=== PATIENT | female | born 1995 | race African-American/Black ===

== ENCOUNTER 2017-04-12 17:38 | Emergency (ER) | payer OTHER ==
[~2017-04-12] VITALS: Ht 162.6 cm; Wt 74.8 kg
[2017-04-12 18:38] LABS: CONTROL LINE UCG INT CTR LINE PRESENT
[2017-04-12 19:14] VITALS: BP 120/70
== END 2017-04-12 19:16 | disposition home or self-care (01) ==
LOC: M ED 18:44
DX: Z32.01 Encounter for pregnancy test, result positive (principal); O26.891 Other specified pregnancy related conditions, first trimester

== ENCOUNTER → 2017-04-24 | Outpatient (REF) | payer OTHER ==
[2017-04-24 13:46] LABS: MEAN CORPUSCULAR HEMOGLOBIN 30.2 pg (27.0-33.0); MEAN CORPUSCULAR HGB CONC 32.6 g/dl (32.0-36.5); MEAN CORPUSCULAR VOLUME 92.5 fl (80.0-96.0); RED CELL DISTRIBUTION WIDTH 13.7 % (11.5-14.5); WHITE BLOOD COUNT 8.6 K/mm3 (4.0-10.0)
[2017-04-24 14:32] LABS: FREE T4 1.27 NG/DL (0.76-1.46); HCG, SERUM QUANTITATIVE 53311 MIU/ML
== END ==
LOC: M LAB REF 12:16
PROVIDERS: ATTEND Advanced Practice Midwife
DX: O36.80X0 Pregnancy with inconclusive fetal viability, not applicable or unspecified (principal)

== ENCOUNTER → 2017-05-19 | Outpatient (REF) | payer OTHER | LOC: M LAB REF 13:32 | PROVIDERS: ATTEND Advanced Practice Midwife | DX: Z34.01 Encounter for supervision of normal first pregnancy, first trimester (principal) ==